=== PATIENT | female | born 1940 | race Caucasian/White ===

== ENCOUNTER 2020-07-27 13:00 | Outpatient (RCR) | payer MEDICARE, OTHER | END 2020-07-29 | disposition still patient (30) | LOC: WSPT | DX: M17.12 Unilateral primary osteoarthritis, left knee (principal) ==

== ENCOUNTER 2020-09-07 13:00 | Outpatient (RCR) | payer MEDICARE, OTHER | END 2020-10-29 | disposition home or self-care (01) | LOC: WSPT | DX: M17.12 Unilateral primary osteoarthritis, left knee (principal) ==

== ENCOUNTER 2021-08-29 22:16 | Observation (INO) | payer MEDICARE, OTHER ==
[~2021-08-29] VITALS: Ht 160 cm; Wt 77.2 kg
[2021-08-29] MEDS ORDERED: SYNTHROID 0.0.025 MG PO (23:36)
[2021-08-29] MEDS ORDERED: PROZAC 20MG20 MG PO (23:36)
[2021-08-29] MEDS ORDERED: VITAMIN D31000 IU PO (23:37)
[2021-08-29] MEDS ORDERED: VITAMIN B12 781 TAB PO (23:37)
[2021-08-29] MEDS ORDERED: VALIUM 2MG T2 MG/TAB PO (23:38)
[2021-08-29] MEDS ORDERED: NATURAL IRON65 MG PO (23:38)
[2021-08-29] MEDS ORDERED: MAGNESIUM200 MG PO (23:38)
[2021-08-29] MEDS ORDERED: FLEXERIL5 MG PO (23:39)
[2021-08-29 23:44] LABS: BASO # 0.1 K/mm3 (0.0-0.2); BASO % 0.7 % (0.0-2.0); EOS # 0.1 K/mm3 (0.0-0.7); EOS % 1.8 % (0-4.0); GRAN # 5.4 K/mm3 (1.4-6.5); GRAN % 70.9 % (42.2-75.2); HEMOGLOBIN 10.4 g/dl (12.5-16.0); LYMPH # 1.2 K/mm3 (1.2-3.4); LYMPH % 15.7 % (20.0-51.0); MEAN CELL VOLUME 77 fl (80.0-100.0); MEAN CORPUSCULAR HEMOGLOBIN 24 pg (27.0-31.0); MEAN CORPUSCULAR HGB CONC 31 g/dl (33.0-37.0); MEAN PLATELET VOLUME 9.7 fl (7.4-10.4); MONO # 0.8 K/mm3 (0.1-0.6); MONO % 10.5 % (1.7-9.3); PLATELET COUNT 360 K/mm3 (130-400); RED BLOOD COUNT 4.35 M/mm3 (4.10-5.30); REDCELL DISTRIBUTION WIDTH-CV 17.8 % (11.5-14.5)
[2021-08-29 23:49] LABS: HEMATOCRIT 33.6 % (37.0-47.0)
[2021-08-29 23:53] LABS: PROTHROMBIN TIME 10.6 SECONDS (9.7-12.8)
[2021-08-29 23:56] LABS: PARTIAL THROMBOPLASTIN TIME 25.9 SECONDS (26.0-37.0)
[2021-08-29 23:57] LABS: ALANINE AMINOTRANSFERASE 22 U/L (0-55); ALBUMIN 3.6 gm/dL (3.4-4.8); ALKALINE PHOSPHATASE 101 U/L (40-150); ANION GAP 10 mmol/L (7-16); AST,SGOT 51 U/L (5-34); BILIRUBIN,TOTAL 0.3 mg/dL (0.2-1.2); BLOOD UREA NITROGEN 29 mg/dL (10-20); CALCIUM 9.5 mg/dL (8.4-10.2); CARBON DIOXIDE 24 mmol/L (23-31); CHLORIDE 106 mmol/L (98-107); GLUCOSE 139 mg/dL (70-99); POTASSIUM 4.3 mmol/L (3.5-4.5); SODIUM 140 mmol/L (136-145)
[2021-08-30 00:17] LABS: TSH w REFLEX 0.887 uIU/mL (0.350-4.940)
[2021-08-30 00:26] LABS: TROPONIN-I < 0.010 ng/mL (0.00-0.033)
[2021-08-30 03:13] VITALS: BP 119/50; PULSE 63; TEMP 98.3
[2021-08-30] MEDS ORDERED: SYNTHROID0.1 MG/TAB PO (04:55)
--- NOTE | 2021-08-30 06:07 | NUR ---
PT ARRIVED TO MEDICAL FLOOR AT 0300 TO ROOM 318, PT A/OX4, VSS, 02 ROOM AIR, PT DENIES CHEST PAIN,SOA, N,V,D. ASSESMENT COMPLETE. MED REC COMPLETE. PT ORIENTED TO MEDICAL FLOOR, HOSPITAL POLICY. THIS NURSE DISCUSSED POC WITH PT. PT VERBALIZES UNDERSTANDING. ALL QUESTIONS.CONCERNS COMPLETE. PT EXPRESSES NO ADDITIONAL NEEDS AT THIS TIME. CALL LIGHT WITHIN REACH.
--- NOTE | 2021-08-30 06:44 | NUR ---
THIS NURSE CONTACTED CARDIOLOGY FOR CONSULT. COMPLETE.
[2021-08-30 06:59] LABS: BASO # 0.1 K/mm3 (0.0-0.2); BASO % 1.1 % (0.0-2.0); EOS # 0.2 K/mm3 (0.0-0.7); EOS % 2.4 % (0-4.0); GRAN # 3.8 K/mm3 (1.4-6.5); GRAN % 56.7 % (42.2-75.2); HEMOGLOBIN 10.7 g/dl (12.5-16.0); LYMPH % 30.7 % (20.0-51.0); MEAN CELL VOLUME 76 fl (80.0-100.0); MEAN CORPUSCULAR HEMOGLOBIN 24 pg (27.0-31.0); MEAN CORPUSCULAR HGB CONC 32 g/dl (33.0-37.0); MEAN PLATELET VOLUME 9.8 fl (7.4-10.4); MONO # 0.6 K/mm3 (0.1-0.6); MONO % 8.9 % (1.7-9.3); PLATELET COUNT 361 K/mm3 (130-400); RED BLOOD COUNT 4.47 M/mm3 (4.10-5.30); REDCELL DISTRIBUTION WIDTH-CV 17.8 % (11.5-14.5)
[2021-08-30 07:11] LABS: HEMATOCRIT 33.8 % (37.0-47.0)
[2021-08-30 07:19] LABS: CALCIUM 9.6 mg/dL (8.4-10.2); CREATININE, serum 1.06 mg/dL (0.57-1.11); POTASSIUM 4.6 mmol/L (3.5-4.5)
[2021-08-30 07:40] VITALS: BP 130/54; PULSE 67; TEMP 97.9
--- NOTE | 2021-08-30 09:00 | NUR ---
ASSESSMENT COMPLETE. PT COOPERATIVE WITH CARES. PT DENIES PAIN, PALPITATIONS OR DIZZINESS. PT HAS NO NEEDS AT THIS TIME. CALL LIGHT WITHIN REACH.
--- NOTE | 2021-08-30 10:04 | NUR ---
MIKE met with the patient and her son, Adeel (ph#[phone]), to discuss discharge plan. The patient resides at [facility]. She reports independence with ADLs and has a cane and walker. She states she has a public health program manager come out once a week. The patient's PCP is Dr. Bushra Traore and she receives her medications from [facility]. She reports no difficulties obtaining her meds. The patient does not have a DPOA-HC in EMR, but she states that she does have one completed and that it designates Adeel. Adeel reports that Dr. Traore's office should have a copy of the DPOA-HC. MIKE contacted [place] at [facility] and requested a copy. The patient plans to return back home to [facility] upon discharge. MIKE discussed home health services. The patient and her son were not interested in home health at this time. The patient is to tentatively discharge today. No additional needs at this time.
[2021-08-30 11:18] VITALS: BP 131/47; PULSE 68; TEMP 97.5
--- NOTE | 2021-08-30 15:00 | NUR ---
SW received the patient's DPOA-HC. SW placed the document in the patient's chart. The patient's DPOA-HC is her son, Adeel.
[2021-08-30 16:18] VITALS: BP 138/47; PULSE 64; TEMP 98.9
--- NOTE | 2021-08-30 17:14 | NUR ---
Discharge paperwork and instructions reviewed with patient and her son. All questions answered at this time. IV to R wrist dc'd catheter tip intact. Pt wheeled out of facility by staff member at this time.
== END 2021-08-30 17:18 | disposition home or self-care (01) ==
LOC: COL.ER 22:16 → MEDICAL 08-30 00:57
PROVIDERS: Student in an Organized Health Care Education/Training Program; ADMIT Family Medicine
DX: I48.0 Paroxysmal atrial fibrillation (principal); R06.00 Dyspnea, unspecified; R00.2 Palpitations; R61 Generalized hyperhidrosis; D64.89 Other specified anemias; E03.9 Hypothyroidism, unspecified; F32.9 Major depressive disorder, single episode, unspecified; Z79.899 Other long term (current) drug therapy; Z79.890 Hormone replacement therapy
CPT/HCPCS: G0378; J1650

== ENCOUNTER 2021-11-20 14:30 | Outpatient (RCR) | payer MEDICARE, OTHER ==
[~2021-11-20 14:30] MED LIST: FLEXERIL5 MG PO; MAGNESIUM200 MG PO; NATURAL IRON65 MG PO; PROZAC 20MG20 MG PO; SYNTHROID 0.0.025 MG PO; SYNTHROID0.1 MG/TAB PO; VALIUM 2MG T2 MG/TAB PO; VITAMIN B12 781 TAB PO; VITAMIN D31000 IU PO
== END 2021-12-09 | disposition home or self-care (01) ==
LOC: WSPT
DX: M79.606 Pain in leg, unspecified (principal)